=== PATIENT | male | born 1980 | race Caucasian/White ===

== ENCOUNTER 2017-09-28 19:22 | Emergency (ER) | payer OTHER ==
[~2017-09-28] VITALS: Ht 170.2 cm; Wt 84.5 kg
[2017-09-28 19:24] VITALS: BP 112/68
[2017-09-28] MEDS ORDERED: ACETAMINOPHEN 500 MG TABLET ONE (20:22)
[2017-09-28] MEDS ORDERED: ACETAMINOPHEN 500 MG TABLET PO ONE (20:30)
[2017-09-28] MEDS ORDERED: PLEASE ENTER ALLERGIES MC SCH (20:30)
[2017-09-28 20:45] LABS: RAPID INFLUENZA A Negative (Negative); RAPID INFLUENZA B POSITIVE (Negative)
== END 2017-09-28 21:39 | disposition home or self-care (01) ==
LOC: ED 21:30
DX: J11.1 Influenza due to unidentified influenza virus with other respiratory manifestations (principal); B34.9 Viral infection, unspecified; J06.9 Acute upper respiratory infection, unspecified
CPT/HCPCS: 71045; 87400; 99285